=== PATIENT | female | born 1960 | race Caucasian/White ===

== ENCOUNTER 2023-12-02 15:59 | Emergency (ER) | payer OTHER, SELFPAY ==
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
[2023-12-02 16:04] VITALS: BP 155/63; PULSE 66; RESP 18; TEMP 36.3; O2SAT 97; BMI 28.1
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
[2023-12-02] MEDS: Ondansetron ODT 4 MG TAB.RAPDIS TRANSLINGU (17:25)
[2023-12-02] MEDS: Acetaminophen 325 MG TABLET 975 MG PO (17:25)
[2023-12-02 17:33] VITALS: BP 155/63; PULSE 66; RESP 18; TEMP 36.3; O2SAT 98
== END 2023-12-02 17:34 | disposition home or self-care (01) ==
PROVIDERS: Emergency Provider Emergency Medicine; PCP Family Medicine
DX: S06.0X0A Concussion without loss of consciousness, initial encounter (principal); S60.512A Abrasion of left hand, initial encounter; V17.0XXA Pedal cycle driver injured in collision with fixed or stationary object in nontraffic accident, initial encounter; Y93.55 Activity, bike riding; Y92.9 Unspecified place or not applicable; Y99.9 Unspecified external cause status
CPT/HCPCS: 70450; 70486; 72125; 99284